=== PATIENT | male | born 1970 | race Caucasian/White ===

== ENCOUNTER 2019-01-02 19:57 | Inpatient (IN) | payer MEDICARE ==
[~2019-01-02] VITALS: Ht 170.2 cm; Wt 88.6 kg
[~2019-01-02 19:57] MED LIST: CELEXA20 MG PO; DURAGESIC1 PATCH .3 TRANSDERM; KLONOPIN0.5 MG PO; OXYCODONE HCL5 MG PO; OXYCONTIN15 MG PO; XANAX0.5 MG; XANAX0.5 MG PO
[2019-01-02 20:30] LABS: BASOPHILS 0.1 % (0-2); EOSINOPHILS 0.1 % (0-7); HEMATOCRIT 45.6 % (42.0-54.0); HEMOGLOBIN 16.1 g/dL (13.5-17.5); IMMATURE GRANULOCYTES 0.4 % (0-5); LYMPHOCYTES 4.2 % (15-50); MCH 31.4 pg (26.0-34.0); MCHC 35.3 g/dL (31.0-37.0); MCV 89.1 fL (80.0-100.0); MEAN PLATELET VOLUME 9.9 fL (7.4-10.4); MONOCYTES 3.6 % (2-11); NEUTROPHILS 91.6 % (40-80); PLATELET COUNT 171 10x3/uL (130-400); RBC 5.12 10x6/uL (4.20-6.10); RDW 13.4 % (11.5-14.5); WBC 18.8 10x3/uL (4.8-10.8)
--- NOTE | 2019-01-02 20:55 | NUR ---
PT TO CT.
--- NOTE | 2019-01-02 21:05 | NUR ---
PT BACK FROM CT.
[2019-01-02 21:07] LABS: ALBUMIN 3.2 g/dL (3.4-5.0); ALKALINE PHOSPHATASE 63 U/L (46-116); ALT (SGPT) 22 U/L (10-68); BILIRUBIN - TOTAL 0.55 mg/dL (0.2-1.3); CALC OSMOLALITY 284 mosm/kg (275-300); CALCIUM 8.4 mg/dL (8.5-10.1); CARBON DIOXIDE 26.7 mmol/L (21.0-32.0); CHLORIDE - SERUM 103 mmol/L (98-107); CREATININE - SERUM 1.3 mg/dL (0.6-1.3); POTASSIUM - SERUM 3.5 mmol/L (3.5-5.1); PROTEIN - SERUM 6.5 g/dL (6.4-8.2); SODIUM 139 mmol/L (136-145); UREA NITROGEN 10 mg/dL (7-18); eGFR NON AFRICAN AMERICAN 62 mL/min (90-120)
[2019-01-02 21:12] LABS: AMYLASE - SERUM 31 U/L (25-115); LIPASE 129 U/L (73-393); TROPONIN-I < 0.017 ng/mL (0.000-0.060)
--- NOTE | 2019-01-02 21:15 | NUR ---
URINE SENT TO LAB.
[2019-01-02 21:22] LABS: GLUCOSE 239 mg/dL (74-106)
--- NOTE | 2019-01-02 21:30 | NUR ---
SPOKE WITH PHYSICIAN ABOUT SEPSIS PROTOCOL. NO FURTHER ORDERS GIVEN FOR FLUIDS.
--- NOTE | 2019-01-02 21:44 | NUR ---
FINGER STICK BLOOD SUGAR 176.
[2019-01-02 23:28] VITALS: BP 117/70; Ht 170.2 cm; Wt 88.6 kg
[2019-01-02 23:39] LABS: UDS - AMPHET POSITIVE QUAL (NEGATIVE); UDS - BARB NEGATIVE QUAL (NEGATIVE); UDS - BENZO NEGATIVE QUAL (NEGATIVE); UDS - COCAINE NEGATIVE QUAL (NEGATIVE); UDS - OPIATE NEGATIVE QUAL (NEGATIVE); UDS - PCP NEGATIVE QUAL (NEGATIVE); UDS - THC NEGATIVE QUAL (NEGATIVE)
[2019-01-02 23:44] LABS: APPEARANCE CLEAR (CLEAR); BILIRUBIN NEGATIVE (NEGATIVE); COLOR YELLOW (YELLOW); GLUCOSE 500 mg/dL (NEGATIVE); KETONE NEGATIVE (NEGATIVE); NITRITE NEGATIVE (NEGATIVE); PROTEIN NEGATIVE (NEGATIVE); UROBILINOGEN NORMAL (NORMAL)
[2019-01-03] VITALS: BP 117/70
[2019-01-03 04:00] VITALS: BP 95/51
--- NOTE | 2019-01-03 07:30 | NUR ---
A/A/OX3. NO C/O OF PAIN OR DISCOMFORT AND NO REQUESTS VOICED. ASSESSMENT COMPLETED. IV PATENT TO LEFT AC WITH NO REDNESS OR EDEMA AT SITE. BED LOW POSITION AND CALL LIGHT IN REACH. GIRLFRIEND AT BEDSIDE. WILL CONTINUE POC
[2019-01-03 07:54] VITALS: BP 93/55
[2019-01-03 11:08] LABS: HEMATOCRIT 40.2 % (42.0-54.0); HEMOGLOBIN 14.2 g/dL (13.5-17.5); LYMPHOCYTES 16.4 % (15-50); MCH 31.1 pg (26.0-34.0); MCHC 35.3 g/dL (31.0-37.0); MEAN PLATELET VOLUME 10.5 fL (7.4-10.4); NEUTROPHILS 81.2 % (40-80); PLATELET COUNT 144 10x3/uL (130-400); RBC 4.57 10x6/uL (4.20-6.10); RDW 13.5 % (11.5-14.5)
[2019-01-03 11:11] LABS: ALBUMIN 2.7 g/dL (3.4-5.0); ANION GAP 8.8 mmol/L (8-16); BILIRUBIN - TOTAL 0.56 mg/dL (0.2-1.3); CARBON DIOXIDE 28.8 mmol/L (21.0-32.0); CREATININE - SERUM 1.2 mg/dL (0.6-1.3); POTASSIUM - SERUM 3.6 mmol/L (3.5-5.1)
[2019-01-03 11:12] LABS: WBC 9.3 10x3/uL (4.8-10.8)
--- NOTE | 2019-01-03 12:20 | NUR ---
PT RESTING IN BED WITH FAMILY AT BEDSIDE. DENIES ANY NEEDS AT THIS TIME, WILL CONT TO FOLLOW POC
[2019-01-03 12:28] VITALS: BP 127/73
[2019-01-03 16:18] VITALS: BP 122/69
--- NOTE | 2019-01-03 17:32 | NUR ---
PT FAMILY ASKED TO WHEEL PT AROUND IN WHEELCHAIR. NURSE APPROVED
--- NOTE | 2019-01-03 17:33 | NUR ---
PT RESTING IN BED, FAMILY AT BEDSIDE. DENIES ANY NEEDS AT THIS TIME. WILL CONT TO FOLLOW POC
--- NOTE | 2019-01-03 19:30 | NUR ---
RECEIVED PT. UP WALKING AROUND WITH GIRLFRIEND. RR EVEN AND UNLABORED. DENIES NEEDS AT THIS TIME. NO S/S OF DISTRESS NOTED. WILL CPOC.
[2019-01-04] VITALS: BP 121/72
[2019-01-04 04:00] VITALS: BP 120/71
[2019-01-04 06:27] LABS: BASOPHILS 0.2 % (0-2); EOSINOPHILS 3.8 % (0-7); HEMATOCRIT 39.1 % (42.0-54.0); HEMOGLOBIN 13.7 g/dL (13.5-17.5); IMMATURE GRANULOCYTES 0.4 % (0-5); LYMPHOCYTES 35.8 % (15-50); MCH 30.8 pg (26.0-34.0); MCV 87.9 fL (80.0-100.0); MEAN PLATELET VOLUME 10.1 fL (7.4-10.4); MONOCYTES 8.3 % (2-11); NEUTROPHILS 51.5 % (40-80); PLATELET COUNT 161 10x3/uL (130-400); RBC 4.45 10x6/uL (4.20-6.10); RDW 13.5 % (11.5-14.5); WBC 8.1 10x3/uL (4.8-10.8)
[2019-01-04 06:33] LABS: ALBUMIN 2.6 g/dL (3.4-5.0); ALKALINE PHOSPHATASE 62 U/L (46-116); ALT (SGPT) 13 U/L (10-68); BILIRUBIN - TOTAL 0.25 mg/dL (0.2-1.3); CALC OSMOLALITY 276 mosm/kg (275-300); CALCIUM 7.9 mg/dL (8.5-10.1); CARBON DIOXIDE 28.4 mmol/L (21.0-32.0); CHLORIDE - SERUM 105 mmol/L (98-107); CREATININE - SERUM 1.1 mg/dL (0.6-1.3); GLUCOSE 126 mg/dL (74-106); POTASSIUM - SERUM 3.7 mmol/L (3.5-5.1); PROTEIN - SERUM 5.9 g/dL (6.4-8.2); SODIUM 139 mmol/L (136-145); UREA NITROGEN 5 mg/dL (7-18); eGFR NON AFRICAN AMERICAN 75 mL/min (90-120)
--- NOTE | 2019-01-04 07:10 | NUR ---
REPORT RECEIVED FROM GRAVEL ROOFER AND PATIENT CARE ASSUMED. PATIENT NOT IN ROOM. NIGHT NURSE STATES THAT PATIENT AND GIRLFRIEND ARE WALKING AROUND. WILL CONTINUE WITH PLAN OF CARE.
--- NOTE | 2019-01-04 07:24 | NUR ---
PATIENT RETURNED TO ROOM. PATIENT IS ALERT, ORIENTED X 4. PATIENT DENIES ANY NEEDS OR PAIN. WILL CONTINUE WITH PLAN OF CARE. SR UP X 2 BED IN LOW POSITION AND CALL LIGHT IN REACH.
[2019-01-04 09:58] VITALS: BP 121/77
--- NOTE | 2019-01-04 10:14 | NUR ---
PATIENT RESTING COMFORTABLY. PATIENT IS STABLE AND VSS. PATIENT DENIES ANY NEEDS OR PAIN. WILL CONTINUE WITH PLAN OF CARE. SR UP X 2 BED IN LOW POSITION AND CALL LIGHT IN REACH. GIRLFRIEND AT .
[2019-01-04] MEDS ORDERED: LEVOFLOXACIN500 MG PO (12:10)
[2019-01-04] MEDS ORDERED: PROTONIX40 MG PO (12:13)
[2019-01-04] MEDS ORDERED: CARAFATE1 G PO (12:13)
--- NOTE | 2019-01-04 14:20 | NUR ---
PATIENT IS STABLE AND VSS. PATIENT DENIES ANY NEEDS OR PAIN. ORDERS RECEIVED FOR DC. VERBAL AND WRITTEN INSTRUCTIONS GIVEN. PATIENT VERBALIZED UNDERSTANDING AND SIGNED PAPERWORK. IV DC/D W/O DIFFICULTY WITH ENTIRE CATHETER INTACT. PATIENT VIA WC TO FRONT AND PRIVATE VEHICLE DRIVEN BY BRENDAILFRIEND.
--- NOTE | 2019-01-04 20:02 | MORECARE ---
CASE MANAGEMENT DISCHARGE SUMMARY PATIENT: TAHIR CUENCA UNIT: [id number] ADM DATE: 01/02/19 AGE: 48 : 68 SEX: M ROOM/BED: D.1213 AUTHOR: ARELY,DOC PHYSICIAN: REFERRING PHYSICIAN: ERIK COLIN MD DATE OF SERVICE: 01/04/19 Discharge Plan Patient Name: TAHIR CUENCA Facility: [facility]:[place] : 1970 Planned Disposition: Home Anticipated Discharge Date: Discharge Date: 01/04/2019 Expected LOS: Initial Reviewer: [email or web address] Initial Review Date: 01/04/2019 Generated: 01/04/19 9:01 pm Comments DCP- Discharge Planning Updated by [email or web address]: Kerry Jay on 01/04/19 6:[address] Patient Name: TAHIR CUENCA Admission Status: ER Accout number: [id number] Admission Date: 01-02-2019 : 1970 Admission Diagnosis:UNSPECIFIED ABDOMINAL PAIN Attending: ERIK WARNER Current LOS: 2 Anticipated DC Date: Planned Disposition: Home Primary Insurance: [employer] ADV Discharge Planning Comments: CM met with patient at bedside after explaining CM role and obtaining verbal consent. Patient lives at home with his GIRLFRIEND and plans to return there upon discharge. Patient feels this would be a safe discharge. CM discussed availability / needs of home health and medical equipment. Patient denies any discharge needs at this time. Patient states he will have his girlfriend drive him home upon discharge. CM will continue to follow and assist as needed with discharge planning / needs. Partnership Development Manager: Kerry Jay DCPIA - Discharge Planning Initial Assessment Updated by [email or web address]: Kerry Jay on 01/04/19 7:57 pm * Is the patient Alert and Oriented? Yes * How many steps to enter\exit or inside your home? * PCP PEGGY MCGARRY APN * Pharmacy [facility] * Preadmission Environment Home with Family * ADLs Independent * Equipment None * List name and contact numbers for known caregivers / representatives who currently or will assist patient after discharge: DAVE CUENCA - MOTHER- [phone] * Verbal permission to speak to the caregivers and representatives has been obtained from the patient. Yes * Community resources currently utilized None * Additional services required to return to the preadmission environment? No * Can the patient safely return to the preadmission environment? Yes * Has this patient been hospitalized within the prior 30 days at any hospital? 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
== END 2019-01-04 14:47 | disposition home or self-care (01) | DRG 872 ==
LOC: D.ER 19:57 → D.M3 22:12
PROVIDERS: Emergency Medicine; ADMIT Family Medicine; ATTEND Family Medicine
DX: A41.9 Sepsis, unspecified organism (principal); F17.213 Nicotine dependence, cigarettes, with withdrawal; K52.9 Noninfective gastroenteritis and colitis, unspecified; N20.0 Calculus of kidney; E86.0 Dehydration; E11.65 Type 2 diabetes mellitus with hyperglycemia; I10 Essential (primary) hypertension; M54.9 Dorsalgia, unspecified; M54.2 Cervicalgia; G89.29 Other chronic pain; G47.33 Obstructive sleep apnea (adult) (pediatric); F31.9 Bipolar disorder, unspecified; Z72.89 Other problems related to lifestyle; F12.90 Cannabis use, unspecified, uncomplicated